=== PATIENT | female | born 1995 | race Asian ===

== ENCOUNTER 2019-03-05 20:42 | Emergency (ER) | payer OTHER, SELFPAY ==
[2019-03-05 20:42] VITALS: BP 112/75; PULSE 63; RESP 16; TEMP 36.5; O2SAT 99; BMI 21.0
[2019-03-05] MEDS: Ketorolac 15 MG/ML Vial IM (21:08)
[2019-03-05] MEDS: Orphenadrine 60 MG/2 ML Ampul IM (21:08)
--- NOTE | 2019-03-05 21:18 | RAD_ITS ---
STUDY: X-RAY - LUMBAR SPINE REASON FOR EXAM: Female, 23 years old. Pain after lifting heavy object TECHNIQUE: 3 view(s) of the lumbar spine were obtained. COMPARISON: None FINDINGS: Decreased lumbar lordosis. There is mild levo scoliosis. There is a normal alignment of the vertebrae. Normal vertebral bodies and endplates. Normal disc space heights. The soft tissue structures are unremarkable. RAD/Lumbar Spine 2 or 3 Views IMPRESSION: There is mild levoscoliosis and abnormal straightening of the spine likely on the basis of muscle spasm. No evidence for acute fracture or subluxation Electronically Signed: Aba Smith MD at 21:34 EDT , Service support ,
--- NOTE | 2019-03-05 22:18 | ED.DCSUM_ITS ---
- ER Visit Summary Date of Service: 03/05/19 Chief Complaint: Back pain History of Present Illness: The patient is a 23 F with low back pain after lifting a 45 pound weight at work. The pain is in her lower back bilaterally and radiates down both of her legs posteriorly, but proximal to her knees. She denies any weakness or numbness. Denies any bowel or bladder changes. Denies abdominal pain or GI/ symptoms. No history of this. No history of IV drug abuse. No history of cancer or immune compromise. No fevers or systemic symptoms. Physical Examination: Afebrile and vital signs unremarkable. Patient is lying in bed on her side with her hips flexed and knees flexed. Abdomen is soft and nontender. Sensation and pulses are intact. She has diffuse lumbar spine tenderness with light touch over the spine and bilaterally. Test Results: X-rays showed levoscoliosis with straightening of lordosis concerning for muscle spasm. No evidence of fracture Emergency Department Course and Treatment: Patient was treated with Toradol and Norflex. On reevaluation, she was able to get up and ambulate. She did have pain with ambulation, but was able to ambulate. I examined her further. Normal reflexes, symmetric. No clonus. Normal Babinski testing. Negative straight leg raise. Strength 5 out of 5 and symmetric in all muscle groups. Normal sensation. No anesthesias. No abdominal tenderness. Patient had urine drug screen testing per [employer]. I believe the patient is appropriate for outpatient follow-up. This is likely muscle spasm. Will treat with Flexeril and naproxen. Follow-up with corporate care. Return for any new or worsening issues. Treatment Plan: As above Disposition: Discharge Impression: 1. Low back strain This note was generated with [employer] software. It may contain incorrect words, spelling, and punctuation that were not noted in review of the chart prior to signing ED Disposition - Plan for ED Patient: Referrals: Care Physician,No Primary [Primary Care Provider] -
--- NOTE | 2019-03-05 22:21 | ED.DEP ---
ED Disposition - Plan for ED Patient: Instructions: BACK SPASM, No Trauma Prescriptions: cycloBENZAPRine HCl [Flexeril] 10 mg PO TID PRN #20 tab PRN Reason: Muscle Spasm Prescription Printed Naproxen [Naprosyn] 500 mg PO BID PRN #20 tab Prescription Printed Referrals: Corporate,Care [GROUP OF PHYSICIANS] -
[2019-03-05 22:33] VITALS: BP 121/82; PULSE 61; RESP 16; O2SAT 100
== END 2019-03-05 22:35 | disposition home or self-care (01) ==
LOC: ED 21:05
PROVIDERS: Emergency Provider Emergency Medicine
DX: S39.012A Strain of muscle, fascia and tendon of lower back, initial encounter (principal); X50.0XXA Overexertion from strenuous movement or load, initial encounter; Y93.89 Activity, other specified; Y92.9 Unspecified place or not applicable; Y99.0 Civilian activity done for income or pay
CPT/HCPCS: 72100; 96372; 99283